=== PATIENT | female | born 1960 | race American Indian/Alaskan Native ===

== ENCOUNTER 2025-06-08 10:01 | Outpatient (CLI) | payer BC ==
[2025-06-08 11:17] LABS: Estimated GFR - POC 51.0
== END 2025-06-08 10:02 | disposition home or self-care (01) ==
LOC: CSHCT 10:01
PROVIDERS: ATTEND Urology
DX: R31.29 Other microscopic hematuria (principal); Z87.442 Personal history of urinary calculi; N20.0 Calculus of kidney; N21.0 Calculus in bladder
CPT/HCPCS: 74178; 82565

== ENCOUNTER 2025-10-03 12:44 | Outpatient (CLI) | payer BC | END 2025-10-03 12:45 | disposition home or self-care (01) | LOC: CSHULT 12:44 | PROVIDERS: ATTEND Otolaryngology | DX: K11.9 Disease of salivary gland, unspecified (principal); E04.1 Nontoxic single thyroid nodule; E04.2 Nontoxic multinodular goiter | CPT/HCPCS: 76536 ==